=== PATIENT | female | born 1985 | race Caucasian/White ===

== ENCOUNTER 2019-09-20 08:42 | Emergency (ER) | payer OTHER ==
[~2019-09-20] VITALS: Ht 165.1 cm; Wt 104.5 kg
[~2019-09-20 08:42] MED LIST: CEPH-264 PO; METH4TAB6 PO; NAPR220T70 PO; NEOM10DR32 AU
[2019-09-20 08:52] VITALS: BP 98/66
[2019-09-20] MEDS ORDERED: KETAMINE HCL 500 MG/10 ML VIAL. ONE (09:05)
[2019-09-20] MEDS ORDERED: KETOROLAC 30 MG/ML VIAL. IV ONE (09:15)
[2019-09-20] MEDS ORDERED: ONDANSETRON PF 4 MG/2 ML VIAL. ONE (09:19)
[2019-09-20] MEDS ORDERED: ONDANSETRON PF 4 MG/2 ML VIAL. IV ONE (09:30)
--- NOTE | 2019-09-20 09:39 | RAD ---
WRIST 3V RIGHT DATE: 09/20/2019 8:55 AM INDICATION: wrist fracture COMPARISON: None. FINDINGS: Bones: There is no evidence of acute fracture or dislocation. Joints: The joint spaces are normal. Miscellaneous: None. IMPRESSION: No evidence of acute fracture. Electronically signed by: Navneet Leon MD (09/20/2019 9:37 AM) [id number]
[2019-09-20] MEDS ORDERED: NAPR500T8 PO (10:08)
--- NOTE | 2019-09-20 10:09 | PHYS DOC ---
Past History Past Medical History: No Pertinent History Past Surgical History: Tonsillectomy Alcohol Use: None Drug Use: None General Adult EDM: Chief Complaint: UPPER EXTREMITY PAIN HPI: HPI: Patient is a 33-year-old female who presents with a 4-day history of right wrist pain. She was seen by her primary doctor and told that she had a dislocated wrist and to come to the emergency department for further evaluation. On arrival here the patient states that she really did not have any trauma just started hurting. She has not been exercising like she ordinarily would because of the pandemic. [] Review of Systems: Review of Systems: Constitutional: Denies fever or chills Eyes: Denies change in visual acuity HENT: Denies nasal congestion or sore throat Respiratory: Denies cough or shortness of breath Cardiovascular: Denies chest pain or edema GI: Denies abdominal pain, nausea, vomiting, bloody stools or diarrhea : Denies dysuria Musculoskeletal: Right wrist pain Integument: Denies rash Neurologic: Denies headache, focal weakness or sensory changes Endocrine: Denies polyuria or polydipsia Lymphatic: Denies swollen glands Psychiatric: Denies depression or anxiety Heart Score: Risk Factors: Risk Factors: DM, Current or recent (<one month) smoker, HTN, HLP, family history of CAD, obesity. Risk Scores: Score 0 - 3: 2.5% MACE over next 6 weeks - Discharge Home Score 4 - 6: 20.3% MACE over next 6 weeks - Admit for Clinical Observation Score 7 - 10: 72.7% MACE over next 6 weeks - Early Invasive Strategies Current Medications: Current Meds: Current Medications Medications (Trade) Dose Ordered Sig/Stephanie Start Time Stop Time Status Last Admin Dose Admin Ketamine HCl (Ketamine) 500 mg STK-MED ONCE 09/20/19 09:05 09/20/19 09:05 DC Ketorolac Tromethamine (Toradol 30mg Vial) 30 mg 1X ONCE 09/20/19 09:15 09/20/19 09:16 DC Ondansetron HCl (Zofran) 4 mg STK-MED ONCE 09/20/19 09:19 09/20/19 09:20 DC Allergies: Allergies: Allergies Coded Allergies Type Severity Reaction Last Updated Verified morphine Allergy Unknown 09/20/19 Yes Physical Exam: PE: Constitutional: Well developed, well nourished, no acute distress, non-toxic appearance. [] HENT: Normocephalic, atraumatic, bilateral external ears normal, oropharynx moist, no oral exudates, nose normal. [] Eyes: PERRLA, EOMI, conjunctiva normal, no discharge. [] Neck: Normal range of motion, no tenderness, supple, no stridor. [] Cardiovascular:Heart rate regular rhythm, no murmur [] Lungs & Thorax: Bilateral breath sounds clear to auscultation [] Abdomen: Bowel sounds normal, soft, no tenderness, no masses, no pulsatile masses. [] Skin: Warm, dry, no erythema, no rash. [] Back: No tenderness, no CVA tenderness. [] Extremities: No tenderness, no cyanosis, no clubbing, ROM intact, no edema. [] Neurologic: Alert and oriented X 3, normal motor function, normal sensory function, no focal deficits noted. [] Psychologic: Affect normal, judgement normal, mood normal. [] Current Patient Data: Vital Signs: Vital Signs Date Time Temp Pulse Resp B/P (MAP) Pulse Ox O2 Delivery O2 Flow Rate FiO2 09/20/19 08:52 97.6 62 18 98/66 (77) 99 EKG: EKG: [] Radiology/Procedures: Radiology/Procedures: []REASON: wrist fracture PROCEDURE: WRIST 3V RIGHT WRIST 3V RIGHT DATE: 09/20/2019 8:55 AM INDICATION: wrist fracture COMPARISON: None. FINDINGS: Bones: There is no evidence of acute fracture or dislocation. Joints: The joint spaces are normal. Miscellaneous: None. IMPRESSION: No evidence of acute fracture. Course & Med Decision Making: Course & Med Decision Making Pertinent Labs and Imaging studies reviewed. (See chart for details) [] Dragon Disclaimer: Dragon Disclaimer: This electronic medical record was generated, in whole or in part, using a voice recognition dictation system. Departure Departure: Impression: Primary Impression: Right wrist sprain Qualified Codes: S63.501A - Unspecified sprain of right wrist, initial encounter Disposition: 01 HOME/RESIDENCE PRIOR TO ADM Condition: STABLE Referrals: PCP,NO (PCP) Patient Instructions: Wrist Exercises, Generic-SportsMed, Wrist Pain, Wrist Splint, Wrist Sprain with Rehab-SportsMed Additional Instructions: Return to the emergency department with any new or concerning symptoms Scripts Naproxen (NAPROXEN) 500 Mg Tablet.dr 1 TAB PO Q12HR PRN for PAIN, #60 TAB 1 Refill Prov: ALEXANDRA LIPSCOMB DO 09/20/19 Justification of Admission: Justification of Admission: Justification of Admission Dx: ALEXANDRA Brown DO Sep 20, 2019 10:09
== END 2019-09-20 10:11 | disposition home or self-care (01) ==
LOC: ER 08:42
DX: S63.501A Unspecified sprain of right wrist, initial encounter (principal); Z88.5 Allergy status to narcotic agent; X58.XXXA Exposure to other specified factors, initial encounter; Y93.89 Activity, other specified; Y92.89 Other specified places as the place of occurrence of the external cause; Y99.8 Other external cause status
CPT/HCPCS: 73110; 96374; 96375; 99284; J1885; J2405